=== PATIENT | female | born 1995 | race Caucasian/White ===

== ENCOUNTER 2016-08-29 17:41 | Emergency (ER) | payer SELFPAY ==
[2015-11-26 04:48] VITALS: BP 127/86
[~2016-08-29 17:41] MED LIST: PREN-385 PO
--- NOTE | 2016-08-29 17:44 | NUR ---
PATIENT LEFT WITHOUT BEING SEEN BY DR. ROCHA. NO FURTHER CARE PROVIDED FOR PATIENT.
[2016-08-29 18:26] VITALS: BP 115/79
== END 2016-08-29 18:05 | disposition left against medical advice (07) ==
LOC: MED 17:41
DX: J02.9 Acute pharyngitis, unspecified (principal); Z53.21 Procedure and treatment not carried out due to patient leaving prior to being seen by health care provider

== ENCOUNTER 2019-07-22 11:46 | Emergency (ER) | payer MEDICAID ==
[~2019-07-22] VITALS: Ht 170.2 cm; Wt 127.0 kg
[2019-07-22 11:55] VITALS: BP 126/65
--- NOTE | 2019-07-22 11:58 | NUR ---
TRIAGE COMPLETE. VSS. IN LOBBY WAITING FOR BED IN ED.
--- NOTE | 2019-07-22 12:09 | NUR ---
PATIENT AMBULATED WITH STEADY GAIT TO BED 7.
--- NOTE | 2019-07-22 12:10 | NUR ---
24 Y/O FEMALE C/O COUGH, FEVER, AND BODY ACHES X 4 DAYS. PT STATES PRODUCTIVE COUGH WITH YELLOW/GREEN SPUTUM. 8/10 ACHING TO GENERALIZED BODY. DENIES DIFFICULTY SWALLOWING/BREATHING. RR EVEN AND UNLABORED. CAM N/V/D. LMP 06/23/2019. SON AT BEDSIDE. MEDHX: CAM ALLERGIES: NKA
[2019-07-22 12:45] VITALS: BP 126/65
--- NOTE | 2019-07-22 12:46 | NUR ---
Patient discharged with v/s stable. Written and verbal after care instructions given and explained. Patient alert, oriented and verbalized understanding of instructions. Ambulatory with steady gait. All questions addressed prior to discharge. ID band removed. Patient advised to follow up with PMD. Rx of AZITHROMYCIN, PROMETHAZINE/CODEINE, ALBUTEROL given. Patient educated on indication of medication including possible reaction and side effects. Opportunity to ask questions provided and answered.
== END 2019-07-22 12:46 | disposition home or self-care (01) ==
LOC: MED 11:46
DX: R05 Cough (principal); H92.03 Otalgia, bilateral; Z79.899 Other long term (current) drug therapy
CPT/HCPCS: 99283

== ENCOUNTER 2019-08-06 15:41 | Emergency (ER) | payer MEDICAID ==
[~2019-08-06] VITALS: Ht 167.6 cm; Wt 104.3 kg
[2019-08-06 15:50] VITALS: BP 120/98
--- NOTE | 2019-08-06 16:01 | NUR ---
PT WHEELCHAIR ASSISTED TO BED WITH FAMILY
--- NOTE | 2019-08-06 16:05 | NUR ---
24/F presents to ED, wheelchair-assisted, with family, c/o R ankle twisting while walking last night. R ankle with moderate swelling, ecchymosis, decreased ROM, unable to bear weight. Pt awake and alert, skin normal color warm and dry, rr even and unlabored. Denies med hx or rx.
--- NOTE | 2019-08-06 16:30 | NUR ---
BREANA DIAZ AT BEDSIDE
[2019-08-06] MEDS ORDERED: KETOROLAC 60 MG/2 ML VIAL IM ONE (17:00)
[2019-08-06 18:07] VITALS: BP 120/98
--- NOTE | 2019-08-06 18:09 | NUR ---
Patient discharged with v/s stable. Written and verbal after care instructions given and explained. Patient alert, oriented and verbalized understanding of instructions. Wheel Chair Assisted with to car. All questions addressed prior to discharge. ID band removed. Patient advised to follow up with PMD. Rx of IBUPROFEN given. Patient educated on indication of medication including possible reaction and side effects. Opportunity to ask questions provided and answered.
== END 2019-08-06 18:08 | disposition home or self-care (01) ==
LOC: MED 15:41
DX: M25.571 Pain in right ankle and joints of right foot (principal); Z79.899 Other long term (current) drug therapy; W01.0XXA Fall on same level from slipping, tripping and stumbling without subsequent striking against object, initial encounter; Y93.89 Activity, other specified; Y92.89 Other specified places as the place of occurrence of the external cause; Y99.8 Other external cause status
CPT/HCPCS: 73610; 96372; 99283; J1885; Q0092